=== PATIENT | male | born 1950 | race Caucasian/White ===

== ENCOUNTER → 2020-01-16 | Outpatient (CLI) | payer MEDICARE, OTHER ==
--- NOTE | 2020-01-16 15:23 | Diagnostic Imaging Report ---
INDICATION: Right knee pain. AP, oblique, and lateral views of the right knee are obtained. No acute fracture or acute bony abnormality is seen. There is medial and lateral joint space narrowing with osteophyte formation. There is prominent patellofemoral spurring and osteophyte formation. There is a question of loose body in the lateral joint space. There are vascular calcifications. IMPRESSION: No acute fracture. Tricompartmental osteoarthritic changes of the right knee. Questionable loose body in the lateral joint space. Dictated by: Dictated on workstation # [id number]
== END ==
LOC: RAD FS 14:23
PROVIDERS: ATTEND Nurse Practitioner
DX: M17.11 Unilateral primary osteoarthritis, right knee (principal)
CPT/HCPCS: 73562